=== PATIENT | female | born 2000 | race Caucasian/White ===

== ENCOUNTER 2021-11-17 17:06 | Inpatient (IN) | payer OTHER ==
[~2021-11-17] VITALS: Ht 160 cm; Wt 82.1 kg
[~2021-11-17 17:06] MED LIST: IBUPROFEN600 MG PO; ZOFRAN ODT 4 MG4 MG PO
[2021-11-17] MEDS ORDERED: ZOLOFT25 MG PO (18:53)
[2021-11-17 19:31] LABS: HEMOGLOBIN 11.3 gm/dl (12.3-15.3); RED BLOOD COUNT 4.25 M/UL (4.00-5.10); WHITE BLOOD COUNT 15.6 K/UL (4.5-11.0)
[2021-11-18] MEDS ORDERED: IBUPROFEN600 MG PO (14:42)
[2021-11-18] MEDS ORDERED: COLACE100 MG PO (14:42)
[2021-11-19 04:59] LABS: HEMOGLOBIN 10.2 gm/dl (12.3-15.3)
== END 2021-11-20 13:14 | disposition home or self-care (01) | DRG 806 ==
LOC: GENOP 17:06 → OB 18:43
PROVIDERS: ADMIT Obstetrics & Gynecology
PROC: 10E0XZZ Delivery of Products of Conception, External Approach (ICD-10-PCS; principal; 2021-11-18)
PROC: 0KQM0ZZ Repair Perineum Muscle, Open Approach (ICD-10-PCS; 2021-11-18)
PROC: 10907ZC Drainage of Amniotic Fluid, Therapeutic from Products of Conception, Via Natural or Artificial Opening (ICD-10-PCS; 2021-11-18)
PROC: 3E033VJ Introduction of Other Hormone into Peripheral Vein, Percutaneous Approach (ICD-10-PCS; 2021-11-18)
PROC: 4A1H7CZ Monitoring of Products of Conception, Cardiac Rate, Via Natural or Artificial Opening (ICD-10-PCS; 2021-11-18)
PROC: 10H073Z Insertion of Monitoring Electrode into Products of Conception, Via Natural or Artificial Opening (ICD-10-PCS; 2021-11-18)
PROC: 0UH97HZ Insertion of Contraceptive Device into Uterus, Via Natural or Artificial Opening (ICD-10-PCS; 2021-11-18)
DX: O99.344 Other mental disorders complicating childbirth (principal); O99.354 Diseases of the nervous system complicating childbirth; Z37.0 Single live birth; F32.A Depression, unspecified; F41.9 Anxiety disorder, unspecified; G43.909 Migraine, unspecified, not intractable, without status migrainosus; Z20.822 Contact with and (suspected) exposure to COVID-19; O69.81X0 Labor and delivery complicated by cord around neck, without compression, not applicable or unspecified; Z81.8 Family history of other mental and behavioral disorders; Z3A.39 39 weeks gestation of pregnancy; Z91.030 Bee allergy status; Z28.310 Unvaccinated for COVID-19; Z87.440 Personal history of urinary (tract) infections; O70.1 Second degree perineal laceration during delivery; Z82.49 Family history of ischemic heart disease and other diseases of the circulatory system; Z80.8 Family history of malignant neoplasm of other organs or systems
CPT/HCPCS: 81001; 85014; 85018; 85025; 85461; 86850; 86900; 86901; J2590; J2790; U0002